=== PATIENT | female | born 1990 | race Caucasian/White ===

== ENCOUNTER 2020-08-13 09:31 | Emergency (ER) | payer SELFPAY ==
[2020-08-13] MEDS ORDERED: Ketorolac Tromethamine 30 MG/ML VIAL ONE (10:45)
== END 2020-08-13 12:21 | disposition home or self-care (01) ==
LOC: ERS 09:31
DX: S39.011A Strain of muscle, fascia and tendon of abdomen, initial encounter (principal); M54.5 Low back pain; M25.552 Pain in left hip; M25.551 Pain in right hip; F17.210 Nicotine dependence, cigarettes, uncomplicated; W19.XXXA Unspecified fall, initial encounter
CPT/HCPCS: 72131; 72192; 96372; J1885